=== PATIENT | female | born 1965 | race Caucasian/White ===

== ENCOUNTER → 2016-09-30 | Outpatient (CLI) | payer MEDICAID ==
[~2016-09-30] MED LIST: CLARITIN10 MG PO; FLAGYL 500MG.500 MG PO; FLEXERIL10 M1 PO; PROVERA10 MG PO
[2016-09-30 09:40] LABS: HEMOGLOBIN 15.1 g/dL (12.2-16.2); LYMPH # 3.3 K/mm3 (0.7-4.5); LYMPH % 31.4 % (10-50.0)
[2016-09-30 10:55] LABS: BUN 16 mg/dL (7-18); GFR (ESTIMATED) 76 ML/MIN (59-)
[2016-10-02 12:37] LABS: Immunoglobulin A, Qn 201 mg/dL (87-352)
[2016-10-02 16:37] LABS: Endomysial Antibody IgA Negative (Negative); t-Transglutaminase (tTG) IgA <2 U/mL (0-3); t-Transglutaminase (tTG) IgG 2 U/mL (0-5)
== END ==
LOC: LAB 09:07
PROVIDERS: Internal Medicine Gastroenterology
DX: K58.9 Irritable bowel syndrome, unspecified (principal)